=== PATIENT | female | born 1980 | race Caucasian/White ===

== ENCOUNTER 2020-12-11 12:42 | Outpatient (CLI) | payer OTHER, SELFPAY ==
--- NOTE | ~2020-12-11 | MMUS_ITS ---
EXAMINATION: MM diag nora implant LT w ana luisa, US breast LT limited HISTORY: Palpable left breast lump TECHNIQUE: Additional 3-D tomosynthesis images of the left breast were performed and synthetic 2-D im ages were generated. Implant displaced views were performed. CAD analysis was submitted and interpret ed. High resolution Limited left breast ultrasound was performed. COMPARISON: None BREAST PARENCHYMAL COMPOSITION: Breast composed of scattered areas of fibroglandular density. FINDINGS: MAMMOGRAPHIC FINDINGS: There are no suspicious masses, calcifications or architectural distortion in the left breast to sugg est malignancy. There is a subpectoral saline implant. ULTRASOUND: Targeted left breast ultrasound: Normal heterogeneous echotexture without focal solid or cystic mass. IMPRESSION: 1. No evidence for malignancy in the left breast. 2. Routine yearly screening mammogram and regular clinical breast examination are recommended. BI-RADS Category 1: Negative Reviewed, dictated and finalized at location A. CRANE OPERATOR IMPRESSION: 1. No evidence for malignancy in the left breast. 2. Routine yearly screening mammogram and regular clinical breast examination a re recommended. BI-RADS Category 1: Negative
== END 2020-12-11 12:43 | disposition home or self-care (01) ==
LOC: ANHIMG 12:48
PROVIDERS: PCP Family Medicine
DX: N63.25 Unspecified lump in the left breast, overlapping quadrants (principal)
CPT/HCPCS: 76642; 77061; 77065; G0279

== ENCOUNTER 2021-12-24 09:45 | Outpatient (RCR) | payer OTHER, SELFPAY ==
--- NOTE | 2021-10-01 14:37 | PTOPEVAL ---
Thank you for referring Kendra oCffman to [facility].? The patient is scheduled to be seen for therapy?1-2 x/week for 8 weeks. Please review, sign, date and return this plan of care ANETTE. I agree with and certify that the following plan of care is medically necessary. Referring Physician Date Attending Provider: Rita Cabrera NP Diagnosis low back pain. Onset 6 yrs Additional Evaluation Detail She works as a [employer] with prolonged use of left UE in flex/elevated position. 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 She does yoga without relief for the past year. No previous therapy for her pain. She runs 2 1/2 miles and resistance training 2x/wk and biking 10 miles a week. She has difficulty with sleep. She startes her back then all positions for her left side. She has increased left side numbness when on left side. She reports increased pain with driving. Pain Assessment Lower Back Reported Pain Level 5 Pain Description Aching,Numbness,Pressure, Radiating,Tightness,Tingling Pain Radiation Left Arm,Left Leg Pain Frequency Chronic,Continuous Lowest Pain Intensity 5 Greatest Pain Intensity 9 Pain Aggravating Factors Prolonged Position Left Shoulder(s) Reported Pain Level 7 Pain Description Pulling,Tightness Pain Frequency Chronic,Continuous Lowest Pain Intensity 5 Greatest Pain Intensity 10 Pain Aggravating Factors Prolonged Position Cervical and Lumbar ROM Lumbar ROM Lumbar Flexion Active Floor:Hands to: Lumbar Comments rotation to left: 25% right 50% flex/ext: 100% no pain, hip hinges with motion vs lumbar curve reversal Lower Extremity Muscle Strength Testing General Lower Extremity Strength Gross Lower Extremity Strength 5/5 except eula hip abd: 3/5 Muscle Length Testing Muscle Length Testing Pectoralis Minor Muscle Length (R) Severe Tightness,(L) Severe Tightness Right Straight Leg Raise Muscle Length ( 90 degrees)
--- NOTE | 2021-11-25 13:00 | PCPTNOTE ---
Patient called & cancelled scheduled appointment this date due to having a fever.
--- NOTE | 2021-11-28 09:13 | PCPTNOTE ---
Patient called & cancelled scheduled appointment this date due to bad weather.
--- NOTE | 2021-12-05 15:50 | PTOPEVAL ---
Physical Therapy Progress Note Thank you for referring Kendra Coffman to [facility].? Kendra has attended 14 therapy visits to address her back pain. She is progressing with improved pain, improved trunk motion, improve tissue restriction and improved strength. She is progressing towards her goals. She requires additional skilled therapy to reach her therapy goals and improve her performance and tolerance with daily task. The patient is scheduled to be seen for therapy? 1 x/week for 4 weeks. Please review, sign, date and return this plan of care ANETTE. I agree with and certify that the following plan of care is medically necessary. Referring Physician Date Attending Provider: Rita Cabrera NP Diagnosis low back pain. Onset 6 yrs Additional Evaluation Detail She works as a [employer] with prolonged use of left UE in flex/elevated position. Subjective Information She does feel the dry needling Query Text:As Reported By Patient/ is helping her muscle Family tightness. She did sit for hours when she had COVID last week with increased pain and tightness. She reports deeper sensation when popping her back with stretches and yoga. She reports intermittent sleeping pattern, but not always related to her back pain. She report left side of back regioncont to feel bound up feeling , but is more isolated into left lower side vs full back. Reports her shoulder is feeling better with decreased tension in her jaw muscles. She is able to drive for 1 hr, but cont to have increased pain with prolonged drive time. Pain Assessment Lower Back Reported Pain Level 3 Pain Description Aching,Tender on Palpation, Tightness Pain Frequency Chronic,Continuous Lowest Pain Intensity 2 Greatest Pain Intensity 6 Pain Aggravating Factors Prolonged Position,Sitting Left Shoulder(s) Reported Pain Level 1 Pain Description Aching Lowest Pain Intensity 1 Greatest Pain Intensity 4 Pain Aggravating Factors Prolonged Position Cervical and Lumbar ROM Lumbar ROM Lumbar Flexion Active Floor:Hands to: Lateral Flexion
--- NOTE | 2021-12-30 12:26 | PCPTNOTE ---
This treatment is being continued on visit number 17 to [id number]. Please see documentation on both accounts to view progress. Completed interventions, outcomes, and problems have been marked as Inactive to facilitate the copying of the Care plan routine for recurring accounts.
== END 2021-12-30 09:49 | disposition home or self-care (01) ==
LOC: ANHPT 09:45
PROVIDERS: PCP Family Medicine; Visit Provider Nurse Practitioner Family
DX: M54.16 Radiculopathy, lumbar region (principal)
CPT/HCPCS: 20560; 97110; 97112; 97140; 97161

== ENCOUNTER → 2022-09-04 10:03 | Outpatient (CLI) | payer OTHER, SELFPAY ==
--- NOTE | ~2022-09-04 | MR_ITS ---
EXAMINATION: MR lumbar spine wo/w con DATE: 09/04/2022 11:03 INDICATION: Localized swelling, mass and lump, trunk. TECHNIQUE: Magnetic resonance imaging (MRI) of the lumbar spine was performed without and with 13 mL MultiHance intravenous contrast. Sequences included sagittal T2-weighted FSE, sagittal T2-weighted FS FSE, sagittal T1-weighted FSE, and axial T2-weighted FSE. COMPARISON: None FINDINGS: There is 4 degrees levocurvature of lumbar spine. There is mild chronic anterior wedging of L1 vertebral body. Intervertebral disc heights are normal. The distal spinal cord signal intensity i s normal. The conus medullaris is at L1. The following disc levels are specifically discussed: L1-L2: There is a central protrusion. There is no facet joint osteoarthritis. There is no neural fora ron stenosis. There is mild central canal stenosis. L2-L3: The disc is bulging as an annular fissure. There is no facet joint osteoarthritis. There is mi ld left neural foraminal stenosis. There is mild central canal stenosis. L3-L4: The disc is bulging. There is no facet joint osteoarthritis. There is mild bilateral neural fo raminal stenosis. There is mild central canal stenosis. L4-L5: The disc is bulging and has an annular fissure. There is mild bilateral facet joint osteoarthr itis. There is mild bilateral neural foraminal stenosis. There is mild central canal stenosis. L5-S1: The disc is bulging and has an annular fissure. There is no facet joint osteoarthritis. There is mild left neural foraminal stenosis. There is mild central canal stenosis. IMPRESSION: 1. Mild lumbar spondylosis. Reviewed, dictated and finalized at location A. RESSIONAL AIDE IMPRESSION: 1. Mild lumbar spondylosis.
== END ==
DX: M47.816 Spondylosis without myelopathy or radiculopathy, lumbar region (principal); M54.50 Low back pain, unspecified; R22.2 Localized swelling, mass and lump, trunk; G89.29 Other chronic pain
CPT/HCPCS: 72158; A9577

== ENCOUNTER → 2022-12-05 10:09 | Outpatient (CLI) | payer OTHER, SELFPAY ==
--- NOTE | ~2022-12-05 | MM_ITS ---
EXAMINATION: MM scrn nora implant BI w ana luisa HISTORY: Screening mammogram TECHNIQUE: Craniocaudal and mediolateral oblique 3-D tomosynthesis images with implant displacement a nd synthetic 2-D images were generated. Craniocaudal and mediolateral oblique views of the breasts wi thout implant displacement were obtained using full field digital mammography. CAD analysis was submi tted and interpreted. COMPARISON: September 10, 2021 diagnostic left mammogram and limited left breast ultrasound examinatio n BREAST PARENCHYMAL COMPOSITION: The breasts are heterogeneously dense, which may obscure small masses . FINDINGS: Status post bilateral augmentation mammoplasty. There is no evidence of suspicious mass, ca lcification, or architectural distortion to suggest malignancy in either breast. There has been no darnell spicious interval change. IMPRESSION: 1. No mammographic evidence of malignancy. 2. Recommend routine screening mammography in one year. BI-RADS Category 1: Negative Reviewed, dictated and finalized at location A. D COOK
== END ==
DX: Z12.31 Encounter for screening mammogram for malignant neoplasm of breast (principal)
CPT/HCPCS: 77063; 77067